=== PATIENT | female | born 1940 | race Caucasian/White ===

== ENCOUNTER 2016-06-06 08:00 | Outpatient (CLI) | payer MEDICARE, OTHER | END 2016-06-06 08:01 | disposition home or self-care (01) | DX: Z00.00 Encounter for general adult medical examination without abnormal findings (principal); E78.5 Hyperlipidemia, unspecified; E83.52 Hypercalcemia; M85.80 Other specified disorders of bone density and structure, unspecified site; M54.5 Low back pain; M51.36 Other intervertebral disc degeneration, lumbar region ==

== ENCOUNTER 2016-06-06 09:59 | Outpatient (CLI) | payer MEDICARE, OTHER | END 2016-06-06 10:00 | disposition home or self-care (01) | DX: M54.5 Low back pain (principal); M51.36 Other intervertebral disc degeneration, lumbar region ==

== ENCOUNTER 2017-06-29 15:20 | Outpatient (CLI) | payer MEDICARE, OTHER ==
--- NOTE | 2017-06-29 19:38 | XRAY Report ---
EXAM: CERVICAL SPINE RADIOGRAPHY EXAM DATE: 06/29/2017 03:47 PM. HISTORY: ULNAR NERVE COMPRESSION, CARPAL TUNNEL SYNDROME. COMPARISONS: None. TECHNIQUE: 7 views, including oblique and flexion-extension lateral views. FINDINGS: Alignment: Normal. No spondylolisthesis or scoliosis. No abnormal motion with flexion or extension. Bones: The cervical vertebral bodies and posterior elements are well visualized from the skull base t hrough C7-T1. No fractures or bone lesions. Disks: Disk space narrowing at all cervical levels. Facets: Generalized degenerative changes with narrowing on the right at C3-C4 and C4-C5 and mild narr owing on the left at C4-C5. Soft Tissues: Normal. No prevertebral soft tissue swelling. The visualized lung apices are clear. IMPRESSION: 1. Generalized degenerative changes with neural foraminal narrowing is noted. 2. No abnormal flexion-extension. [facility] Referring Provider Line: [phone] SITE ID: [id number]
== END 2017-06-29 15:21 | disposition home or self-care (01) ==
LOC: DI.N 15:20
PROVIDERS: ATTEND Nurse Practitioner
DX: M54.12 Radiculopathy, cervical region (principal); M54.2 Cervicalgia
CPT/HCPCS: 72052

== ENCOUNTER 2017-07-03 08:00 | Outpatient (CLI) | payer MEDICARE, OTHER ==
[2017-07-03 19:29] LABS: CALCIUM 10.3 mg/dL (8.5-10.3); CREATININE 0.6 mg/dL (0.4-1.0)
== END 2017-07-03 08:01 | disposition home or self-care (01) ==
LOC: LAB.N 08:00
PROVIDERS: ATTEND Nurse Practitioner
DX: Z00.00 Encounter for general adult medical examination without abnormal findings (principal)
CPT/HCPCS: 36415; 80048

== ENCOUNTER 2017-07-09 13:36 | Outpatient (CLI) | payer MEDICARE, OTHER ==
--- NOTE | 2017-07-10 13:37 | DEXA Report ---
DEXA SCAN: 07/09/2017 CLINICAL INDICATION: Osteopenia. . TECHNIQUE: Dual energy x-ray absorptiometry (DXA) was performed on a [employer] system. Regions measured are the AP spine, femoral neck, and, if needed, forearm. COMPARISON: None. In accordance with the International Society for Clinical Densitometry (ISCD) guidelines, data from previous exams may be reanalyzed using current recommendations and techniques. This is done to allow a more accurate basis for comparison with the current study. FINDINGS: The data for the lumbar spine is as follows: REGION BMD (g/cm/cm) T-SCORE Z-SCORE L1 1.030 -0.8 0.9 L2 1.195 0.0 1.7 L3 1.245 0.4 2.1 L4 1.029 -1.4 0.3 TOTAL 1.123 -0.5 1.2 NOTE: All evaluable vertebrae are used for classification. The data for the hip is as follows: REGION BMD (g/cm/cm) T-SCORE Z-SCORE Neck 0.801 -1.7 0.3 TOTAL 0.741 -2.1 -0.3 NOTE: The femoral neck or total proximal femur, whichever is lowest, is used for classification. IMPRESSION: THE WHO CLASSIFICATION BASED ON THE INTERNATIONAL REFERENCE STANDARD IS OSTEOPENIA. THE FRACTURE RISK IS INCREASED. RECOMMENDATION: Patients with diagnosis of osteoporosis or osteopenia should have regular bone mineral density assessment. For those eligible for Medicare, routine testing is allowed once every 2 years. Testing frequency can be increased for patients who have rapidly progressing disease or for those who are receiving medical therapy to restore bone mass. COMMENT: World Health Organization (WHO) definitions for osteoporosis and osteopenia: NORMAL BMD: T-score at 1.0 or higher, fracture risk is low. OSTEOPENIA BMD: T-score between 1.0 and -2.5, fracture risk is increased. OSTEOPOROSIS BMD: T-score at 2.5 or lower, fracture risk high. National Osteoporosis Foundation recommends: 1. Obtain adequate dietary calcium (at least 1200 mg per day) and vitamin D (400 -800 international units per day). 2. Participate, as appropriate, in regular weightbearing and muscle- strengthening exercise. 3. Avoid tobacco use and reduce alcohol and caffeine intake. 4. For more detailed information see the website at www.NOF.org. MTDD
== END 2017-07-09 13:37 | disposition home or self-care (01) ==
LOC: DI 13:36
PROVIDERS: ATTEND Nurse Practitioner
DX: M85.88 Other specified disorders of bone density and structure, other site (principal)
CPT/HCPCS: 77080

== ENCOUNTER 2017-07-16 23:34 | Outpatient (CLI) | payer MEDICARE, OTHER | END 2017-07-16 23:35 | disposition home or self-care (01) | LOC: LAB.N 23:34 | PROVIDERS: ATTEND Nurse Practitioner | DX: M85.80 Other specified disorders of bone density and structure, unspecified site (principal) | CPT/HCPCS: 36415; 82306 ==

== ENCOUNTER 2018-01-22 06:08 | Day surgery (SDC) | payer MEDICARE, OTHER ==
[2018-01-22] MEDS ORDERED: LACTATED RINGERS 1,000 ML IV ONE (06:37)
[2018-01-22] MEDS ORDERED: BUPIVACAINE 0.25% PF 30 ML VIAL ONE (06:58)
[2018-01-22] MEDS ORDERED: LIDOCAINE 1%-EPI 1:100000 30 ML MDV ONE (06:59)
[2018-01-22] MEDS ORDERED: fentaNYL 100 MCG/2 ML VIAL IVP ONE (07:08)
[2018-01-22] MEDS ORDERED: PROPOFOL 200 MG/20 ML VIAL IVP ONE (07:08)
[2018-01-22] MEDS ORDERED: ONDANSETRON 4 MG/2 ML VIAL IVP ONE (07:08)
--- NOTE | 2018-01-22 07:08 | ANESTHESIA ---
Pre-Anesthesia VS, & Labs - Diagnosis left carpal tunnel syndrome - Procedure left carpal tunnel release Vital Signs: Temp Pulse Resp BP Pulse Ox 36.3 C L 71 16 148/93 H 100 01/22/18 06:42 01/22/18 06:42 01/22/18 06:42 01/22/18 06:42 01/22/18 06:42 Height 5 ft 2 in Weight (kg) 67.9 kg - NPO >8 hours - Is Patient ?: Not Applicable - Lab Results Lab results reviewed: Yes Home Medications and Allergies Home Medications: Ambulatory Orders Acetaminophen [Tylenol Arthritis] 650 mg PO 01/21/18 Aspirin 81 mg PO 01/21/18 Calcium Carbonate [Calcium] 600 mg PO 01/21/18 Cholecalciferol (Vitamin D3) [Vitamin D3] 1,000 unit PO 01/21/18 Naproxen Sodium [Aleve] 220 mg PO 01/21/18 [place]-3/Dha/Epa/Fish Oil [Fish Oil 1,000 mg Softgel] 1 each PO 01/21/18 Gabapentin [Neurontin] 100 mg PO ONCE 01/22/18 Sumatriptan Succinate [Imitrex] 50 mg PO PRN PRN 01/22/18 Tolterodine Tartrate [Detrol LA] 4 mg PO ACHS 01/22/18 Acetaminophen [Tylenol Arthritis] 650 mg PO 01/21/18 Aspirin 81 mg PO 01/21/18 Calcium Carbonate [Calcium] 600 mg PO 01/21/18 Cholecalciferol (Vitamin D3) [Vitamin D3] 1,000 unit PO 01/21/18 Naproxen Sodium [Aleve] 220 mg PO 01/21/18 [place]-3/Dha/Epa/Fish Oil [Fish Oil 1,000 mg Softgel] 1 each PO 01/21/18 Gabapentin [Neurontin] 100 mg PO ONCE 01/22/18 Sumatriptan Succinate [Imitrex] 50 mg PO PRN PRN 01/22/18 Tolterodine Tartrate [Detrol LA] 4 mg PO ACHS 01/22/18 Allergies/Adverse Reactions: Allergies Allergy/AdvReac Type Severity Reaction Status Date / Time No Known Drug Allergies Allergy Verified 01/22/18 07:11 Anes History & Medical History - Anesthetic History Anesthesia Complications: reports: Post-Operative Nausea/Vomiting Family history of Anesthesia Complications: Denies Family history of Malignant Hyperthermia: Denies - Medical History Cardiovascular: reports: High cholesterol Pulmonary: reports: None Gastrointestinal: reports: GERD Urinary: reports: None Musculoskeletal: reports: Osteoarthritis, Osteopenia, Scoliosis Endocrine/Autoimmune: reports: None Skin: reports: None, Other - Surgical History General: Appendectomy Eyes Ears Nose Throat (EENT): Cataracts Gynecologic: Hysterectomy Orthopedic: Hip replacement, Knee replacement Exam General: Alert, Oriented x3, Cooperative, No acute distress Dental: WNL Mouth Openin Fingerbreadth Neck Mobility: Normal Mallampati classification: I Thyromental Distance: greater than 6 cm Respiratory: Lungs clear, Normal breath sounds, No respiratory distress, No accessory muscle use Cardiovascular: Regular rate, Normal S1, Normal S2, No murmurs Mental/Cognitive Status: Alert/Oriented X3, Normal for patient Cognitive Status: Within normal limits Plan Anesthesia Type: MAC Consent for Procedure(s) Verified and Reviewed: Yes Code Status: Attempt Resuscitation ASA classification: 2-Mild systemic disease Is this case an emergency?: No
[2018-01-22] MEDS ORDERED: BUPIVACAINE 0.25% PF 30 ML VIAL SUBQ ONE ×2 (07:35)
[2018-01-22] MEDS ORDERED: LIDOCAINE 1%-EPI 1:100000 30 ML MDV SUBQ ONE ×2 (07:35)
[2018-01-22 08:27] VITALS: BP 120/65
--- NOTE | 2018-01-22 12:20 | OPERATIVE REPORT ---
DATE OF SERVICE: 01/22/2018 Physician: Sarah Baer MD PREOPERATIVE DIAGNOSIS: Left carpal tunnel syndrome. POSTOPERATIVE DIAGNOSIS: Left carpal tunnel syndrome. PROCEDURE PERFORMED: Left carpal tunnel release. OPERATING SURGEON: Sarah Baer MD ANESTHESIA: Local, MAC. ANESTHESIOLOGIST: Irina Gray CRNA. INDICATIONS FOR SURGERY: The patient is a 77-year-old female with progressive carpal tunnel syndrome of her left hand, who has numbness at night, and is not responding to bracing and nonoperative treat ment, and she desires a carpal tunnel release. DESCRIPTION OF OPERATIVE PROCEDURE: The patient was taken to the operating room. She was given tevin tion in the supine position. Her left hand was sterilely prepped and draped in standard fashion. Simons rgical timeout was undertaken, after which the carpal tunnel was infiltrated with 1% lidocaine with e pinephrine and 0.25% Marcaine plain, utilizing a proximal total volume of 8 mL. Once this was adequa tely anesthetized, a longitudinal incision was made in the palm in line with the radial border of the ring finger, approximately 1.5 inches in length, taken through skin and subcutaneous tissue, and the n dissecting down to the transverse carpal ligament, which was divided in line with the incision. Th e release extended from the distal flexion crease of the wrist to the area of the superficial arch in the palm, and the median nerve was noted to be somewhat constricted, but no other anatomic abnormali ty noted. The area was irrigated thoroughly. Closure was with interrupted 4-0 nylon suture in the skin, after which sterile dressings were applied. The patient was taken to recovery room in stable condition. ESTIMATED BLOOD LOSS: Minimal. COMPLICATIONS: None. COUNTS: Sponge and needle counts correct. TD: 01/22/2018 10:39
== END 2018-01-22 06:09 | disposition home or self-care (01) ==
LOC: SDS 06:08
PROVIDERS: ATTEND Orthopaedic Surgery
PROC: 01N50ZZ Release Median Nerve, Open Approach (ICD-10-PCS; principal; 2018-01-22 07:30)
DX: G56.02 Carpal tunnel syndrome, left upper limb (principal); E78.5 Hyperlipidemia, unspecified; M41.80 Other forms of scoliosis, site unspecified; K21.9 Gastro-esophageal reflux disease without esophagitis; M19.90 Unspecified osteoarthritis, unspecified site; M85.80 Other specified disorders of bone density and structure, unspecified site; Z85.820 Personal history of malignant melanoma of skin; Z86.718 Personal history of other venous thrombosis and embolism; Z79.1 Long term (current) use of non-steroidal anti-inflammatories (NSAID); Z79.82 Long term (current) use of aspirin
CPT/HCPCS: 64721; J7120

== ENCOUNTER 2018-11-12 | Outpatient (CLI) | payer MEDICARE, OTHER | END 2018-11-12 23:59 | disposition home or self-care (01) | DX: R39.9 Unspecified symptoms and signs involving the genitourinary system (principal) | CPT/HCPCS: 87086; 87181 ==

== ENCOUNTER 2019-03-04 11:19 | Outpatient (CLI) | payer MEDICARE, OTHER ==
[2019-03-04 17:09] LABS: BASOPHILS % (AUTO) 0.5 %; EOSINOPHILS % (AUTO) 0.5 %; HGB - HEMOGLOBIN 13.4 g/dL (12.0-16.0); LYMPHOCYTES % (AUTO) 33.2 %; MEAN CORPUSCULAR HEMOGLOBIN 30.2 pg (27.0-31.0); MEAN CORPUSCULAR HGB CONC 31.6 g/dL (32.0-36.0); MEAN CORPUSCULAR VOLUME 95.5 fL (81.0-99.0); MEAN PLATELET VOLUME 10.7 fL (7.9-10.8); MONOCYTES # (AUTO) 0.4 10^3/uL (0.0-1.0); MONOCYTES % (AUTO) 6.5 %; NEUTROPHILS # (AUTO) 3.5 10^3/uL (1.5-6.6); NEUTROPHILS % (AUTO) 59.1 %; PLT - PLATELET COUNT 300 10^3/uL (130-450); RED BLOOD COUNT 4.44 10^6/uL (4.20-5.40); RED CELL DISTRIBUTION WIDTH 13.7 % (12.0-15.0)
[2019-03-04 17:21] LABS: ALBUMIN 4.4 g/dL (3.2-5.5); ALBUMIN/GLOBULIN RATIO 1.4 (1.0-2.2); CREATININE 0.7 mg/dL (0.4-1.0); TOTAL PROTEIN 7.5 g/dL (6.7-8.2)
== END 2019-03-04 23:59 | disposition home or self-care (01) ==
LOC: LAB.N 11:19
PROVIDERS: ATTEND Nurse Practitioner Gerontology
DX: Z79.899 Other long term (current) drug therapy (principal)
CPT/HCPCS: 36415; 80053; 85025

== ENCOUNTER 2020-02-23 18:55 | Outpatient (CLI) | payer MEDICARE, OTHER | END 2020-02-23 18:56 | disposition home or self-care (01) | LOC: COV 18:55 | PROVIDERS: ATTEND Ophthalmology | DX: Z01.812 Encounter for preprocedural laboratory examination (principal); H25.11 Age-related nuclear cataract, right eye; Z20.828 Contact with and (suspected) exposure to other viral communicable diseases ==

== ENCOUNTER 2020-02-26 07:23 | Day surgery (SDC) | payer MEDICARE, OTHER ==
[~2020-02-26 07:23] MED LIST: KETOROLAC 0.45% OPHTH DROPS ONE; PHENYLEPHRINE 2.5% OPHTH 2 ML DROPS ONE; PROPARACAINE 0.5% OPHTH DROPS 15 ML ONE
[2020-02-26] MEDS ORDERED: MIDAZOLAM 2 MG/2 ML VIAL IVP ONE (07:24)
[2020-02-26] MEDS ORDERED: LACTATED RINGERS 500 ML IV ONE ×2 (08:03→09:55)
[2020-02-26] MEDS ORDERED: MORPHINE 2 MG/ML CARPUJECT IVP PRN (08:27)
[2020-02-26] MEDS ORDERED: ATROPINE ABBOJECT 1 MG/10 ML SYRINGE IVP PRN (08:27)
[2020-02-26] MEDS ORDERED: HYDROmorphone 0.5 MG/0.5 ML SYRINGE IVP PRN (08:27)
[2020-02-26] MEDS ORDERED: ONDANSETRON 4 MG/2 ML VIAL IVP PRN (08:27)
[2020-02-26] MEDS ORDERED: ePHEDrine 50 MG/ML VIAL IVP PRN (08:27)
[2020-02-26] MEDS ORDERED: METOCLOPRAMIDE 10 MG/2 ML VIAL IVP PRN (08:27)
[2020-02-26] MEDS ORDERED: fentaNYL 100 MCG/2 ML VIAL IVP PRN (08:27)
[2020-02-26] MEDS ORDERED: NALOXONE 0.4 MG/ML VIAL IVP PRN (08:27)
--- NOTE | 2020-02-26 08:27 | ANESTHESIA ---
Pre-Anesthesia VS, & Labs - Diagnosis right eye cataract - Procedure right CATIOL Vital Signs: Temp Pulse Resp BP Pulse Ox 36.7 C 71 16 139/91 H 97 02/26/20 07:37 02/26/20 07:37 02/26/20 07:37 02/26/20 07:37 02/26/20 07:37 Height: 5 ft 2 in Weight (kg): 71 kg Body Mass Index: 28.6 BMI Classification: Overweight - NPO >8 hours - Is Patient ?: No - Lab Results Lab results reviewed: Yes Home Medications and Allergies Acetaminophen [Tylenol Arthritis] 650 mg PO PRN PRN 01/21/18 Aspirin 81 mg PO DAILY 01/21/18 Calcium Carbonate [Calcium] 600 mg PO DAILY 01/21/18 Cholecalciferol (Vitamin D3) [Vitamin D3] 1,000 unit PO DAILY 01/21/18 Naproxen Sodium [Aleve] 220 mg PO DAILY 01/21/18 [place]-3/Dha/Epa/Fish Oil [Fish Oil 1,000 mg Softgel] 1 each PO DAILY 01/21/18 Sumatriptan Succinate [Imitrex] 50 mg PO PRN PRN 01/22/18 Tolterodine Tartrate [Detrol LA] 4 mg PO ACHS 01/22/18 Allergies/Adverse Reactions: Allergies Allergy/AdvReac Type Severity Reaction Status Date / Time No Known Drug Allergies Allergy Verified 01/22/18 07:11 Anes History & Medical History - Anesthetic History Anesthesia Complications: reports: No previous complications Family history of Anesthesia Complications: Denies Family history of Malignant Hyperthermia: Denies - Medical History Cardiovascular: reports: High cholesterol Pulmonary: reports: None Gastrointestinal: reports: GERD Urinary: reports: None, Frequency Musculoskeletal: reports: Osteoarthritis, Osteopenia, Scoliosis Endocrine/Autoimmune: reports: None Skin: reports: None, Other - Surgical History General: Appendectomy Eyes Ears Nose Throat (EENT): Cataracts Gynecologic: Hysterectomy Orthopedic: Hip replacement, Knee replacement Exam General: Alert, Oriented x3, Cooperative, No acute distress Dental: WNL Mouth Openin Fingerbreadth Neck Mobility: Normal Mallampati classification: II Respiratory: Lungs clear, Normal breath sounds, No respiratory distress, No accessory muscle use Cardiovascular: Regular rate, Normal S1, Normal S2, No murmurs Plan Anesthesia Type: MAC Consent for Procedure(s) Verified and Reviewed: Yes Code Status: Attempt Resuscitation ASA classification: 2-Mild systemic disease Is this case an emergency?: No
[2020-02-26 08:54] LABS: C. PNEUMONIAE- RESP PCR PANEL NOT DETECTED
[2020-02-26] MEDS ORDERED: LACTATED RINGERS 1,000 ML IV SCH (09:00)
[2020-02-26] MEDS ORDERED: BRIMONIDINE 0.2% OPHTH DROPS 5 ML OPTH ONE ×2 (09:06→09:38)
[2020-02-26] MEDS ORDERED: EPINEPHrine 1 MG/ML AMP IR ONE ×2 (09:06→09:38)
[2020-02-26] MEDS ORDERED: BSS/LIDOCAINE/EPINEPHRINE 1 ML SYRINGE IO ONE ×2 (09:07→09:38)
[2020-02-26] MEDS ORDERED: TIMOLOL 0.5% OPHTH DROPS OPTH ONE ×2 (09:07→09:38)
[2020-02-26] MEDS ORDERED: CHONDR SULF/HYALURONATE SYRINGE IO ONE ×2 (09:07→09:38)
[2020-02-26] MEDS ORDERED: TRIAMCIN/MOXIFLOX OPHTHALMIC 0.6 ML VIAL IO ONE ×3 (09:07→11:04)
[2020-02-26] MEDS ORDERED: PROPARACAINE 0.5% OPHTH DROPS 15 ML EACHEYE ONE ×2 (09:08→09:38)
[2020-02-26] MEDS ORDERED: VANCOMYCIN OPHTHALMI 8MG/0.8ML 8 MG/0.8 ML SYRINGE IO ONE ×3 (09:08→11:05)
[2020-02-26] MEDS ORDERED: CARBACHOL 0.01% 1.5 ML VIAL IO ONE ×2 (09:48→09:56)
[2020-02-26 09:56] VITALS: BP 110/62
[2020-02-26] MEDS ORDERED: BSS/LIDOCAINE/EPINEPHRINE 1 ML SYRINGE ONE (11:05)
[2020-02-26] MEDS ORDERED: EPINEPHrine 1 MG/ML AMP ONE (11:05)
[2020-02-26] MEDS ORDERED: BRIMONIDINE 0.2% OPHTH DROPS 5 ML ONE (11:05)
[2020-02-26] MEDS ORDERED: TIMOLOL 0.5% OPHTH DROPS ONE (11:05)
--- NOTE | 2020-02-26 14:16 | OPERATIVE REPORT ---
DATE OF SERVICE: 02/26/2020 Physician: Jay Hong MD PREOPERATIVE DIAGNOSIS: Visually significant cataract, right eye. Cataract surgery was performed on the left eye on 05/21/2008 by another provider. POSTOPERATIVE DIAGNOSIS: Visually significant cataract, right eye. Cataract surgery was performed on the left eye on 05/21/2008 by another provider. PROCEDURE PERFORMED: Phacoemulsification with posterior chamber intraocular lens implant, right eye. SURGEON: Jay Hong MD ANESTHESIA: Monitored anesthesia care. COMPLICATIONS: None. OPERATIVE INDICATIONS: This is an 80-year-old woman with progressive vision loss in the right eye du e to 3-4+ nuclear sclerotic cataract. Best corrected visual acuity was 20/25, with glare to 20/125. Indications for surgery are overall decrease in vision, difficulty seeing words on a computer screen , difficulty reading, difficulty seeing words, closed caption or game scores on TV, difficulty seeing street signs, difficulty driving in low light or at night, difficulty driving at night because of he adlights from other vehicles, and difficulty with glare or bright lights in any situation. She was c onsented at length concerning risks and benefits of cataract surgery, after which she expressed a prasanna morgan to proceed with surgery. OPERATIVE PROCEDURE: The patient was taken to OR #3 and placed under monitored anesthesia care. A s urgical timeout was conducted confirming correct patient, correct procedure, and correct surgical sit e. She was given topical anesthesia, and prepped and draped in the usual sterile fashion. The eye w as entered at the 12, and 9 o'clock positions. Intracameral Shugarcaine was injected into the anteri or chamber, followed by Viscoat. A continuous-tear curvilinear capsulorrhexis was performed. The nu cleus was hydrodissected and phacoemulsified. The cortex was evacuated using automated infusion and aspiration. Provisc was injected in the capsular bag, and a 19.5 diopter intraocular lens inserted i n the bag. Infusion and aspiration was used to evacuate the viscoelastic materials. The eye was inf lated to physiologic pressure using balanced salt solution and found to be watertight. Approximately 0.25 mL of a mixture of triamcinolone and moxifloxacin was injected transsclerally into the vitreous in inferotemporal quadrant. An additional 0.55 mL of a mixture of triamcinolone, moxifloxacin, and vancomycin was injected subconjunctivally in the superior quadrant for infection and inflammation pro phylaxis. The wound was prolapsing somewhat up to the plane of the iris so Miostat was injected into the anterior chamber to bring the pupil down and force the lens posteriorly, this did eventually occ ur and afterwards the wound integrity was checked with Weck-Alicia sponges and found to be intact. The patient was taken from the Operating Room in good condition and given postoperative instructions. TD: 02/26/2020 10:04
== END 2020-02-26 07:24 | disposition home or self-care (01) ==
LOC: SDS 07:23
PROVIDERS: ATTEND Ophthalmology
DX: H25.11 Age-related nuclear cataract, right eye (principal); Z98.42 Cataract extraction status, left eye
CPT/HCPCS: 66984; 87631; A9270; J3490; J7120; V2632; 0202U

== ENCOUNTER 2020-03-12 08:00 | Outpatient (CLI) | payer MEDICARE, OTHER ==
[2020-03-12 13:00] LABS: BASOPHILS % (AUTO) 0.6 %; EOSINOPHILS # (AUTO) 0.1 10^3/uL (0.0-0.7); EOSINOPHILS % (AUTO) 1.7 %; HGB - HEMOGLOBIN 13.6 g/dL (12.0-16.0); LYMPHOCYTES # (AUTO) 2.5 10^3/uL (1.5-3.5); LYMPHOCYTES % (AUTO) 47.1 %; MEAN CORPUSCULAR HEMOGLOBIN 30.4 pg (27.0-31.0); MEAN CORPUSCULAR HGB CONC 31.1 g/dL (32.0-36.0); MEAN CORPUSCULAR VOLUME 97.8 fL (81.0-99.0); MEAN PLATELET VOLUME 10.9 fL (7.9-10.8); MONOCYTES # (AUTO) 0.6 10^3/uL (0.0-1.0); MONOCYTES % (AUTO) 10.6 %; NEUTROPHILS # (AUTO) 2.1 10^3/uL (1.5-6.6); NEUTROPHILS % (AUTO) 39.8 %; PLT - PLATELET COUNT 286 10^3/uL (130-450); RED BLOOD COUNT 4.47 10^6/uL (4.20-5.40); RED CELL DISTRIBUTION WIDTH 13.2 % (12.0-15.0); WHITE BLOOD COUNT 5.3 x10^3/uL (4.8-10.8)
[2020-03-12 13:34] LABS: ALBUMIN 4.3 g/dL (3.2-5.5); ALBUMIN/GLOBULIN RATIO 1.3 (1.0-2.2); ALKALINE PHOSPHATASE 51 IU/L (42-121); ALT ALANINE AMINOTRANSFERASE 19 IU/L (10-60); AST ASPARTATE AMINOTRANSFERASE 21 IU/L (10-42); BILIRUBIN,TOTAL 0.6 mg/dL (0.2-1.0); BUN - BLOOD UREA NITROGEN 21 mg/dL (6-20); CALCIUM 9.7 mg/dL (8.5-10.3); CARBON DIOXIDE - CO2 27 mmol/L (21-32); CHLORIDE 104 mmol/L (101-111); CHOLESTEROL 184 mg/dL; CREATININE 0.7 mg/dL (0.4-1.0); GLUCOSE 82 mg/dL (70-100); HDL CHOLESTEROL 46 mg/dL; LDL CHOLESTEROL,CALCULATED 113 mg/dL; LDL/HDL RATIO 2.5 (<4.4); SODIUM 135 mmol/L (135-145); TOTAL PROTEIN 7.6 g/dL (6.7-8.2); VLDL CHOLESTEROL 25 mg/dL
== END 2020-03-12 23:59 | disposition home or self-care (01) ==
LOC: LAB.WCP 08:00
PROVIDERS: ATTEND Nurse Practitioner
DX: R00.2 Palpitations (principal); Z79.899 Other long term (current) drug therapy; K21.9 Gastro-esophageal reflux disease without esophagitis; M85.80 Other specified disorders of bone density and structure, unspecified site; E83.52 Hypercalcemia
CPT/HCPCS: 36415; 80053; 80061; 83721; 84443; 85025

== ENCOUNTER 2020-03-15 12:37 | Outpatient (CLI) | payer MEDICARE, OTHER ==
--- NOTE | 2020-03-16 14:35 | Mammography Report ---
BILATERAL DIGITAL SCREENING MAMMOGRAM 3D/2D: 03/15/2020 CLINICAL: Routine screening. Comparison is made to exams dated: 05/08/2014 ultrasound, 05/08/2014 mammogram, 03/31/2013 mammogram, 02/28/2011 mammogram, and 02/28/2010 mammogram - [facility]. There are scattered f ibroglandular elements in both breasts. There are benign vascular calcifications in the right breast. No significant masses, calcifications, or other findings are seen in either breast. There has been no significant interval change. IMPRESSION: BENIGN There is no mammographic evidence of malignancy. A 1 year screening mammogram is recommended. This exam was interpreted at Station ID: [id number]. NOTE: For mammograms, a report in lay terms will be sent to the patient. Approximately 15% of breast malignancies will not be visualized mammographically. In the management of a palpable breast mass, a negative mammogram must not discourage biopsy of a clinically suspicious lesion. Electronically Signed By: Zoila shin/tresa:03/15/2020 13:33:57 ACR BI-RADS Category 2: Benign Finding(s) 3342F PARENCHYMAL PATTERN: (A) - The breast(s) demonstrate(s) scattered fibroglandular densities. BI-RADS CATEGORY: (2) - 2 RECOMMENDATION: (ANNUAL) - Recommend routine annual screening mammography. [id number] 1 year screening LATERALITY: (B)
== END 2020-03-15 12:38 | disposition home or self-care (01) ==
LOC: DI.N 12:37
PROVIDERS: ATTEND Nurse Practitioner
DX: Z12.31 Encounter for screening mammogram for malignant neoplasm of breast (principal)

== ENCOUNTER 2020-03-16 11:00 | Outpatient (CLI) | payer MEDICARE, OTHER ==
--- NOTE | 2020-03-16 15:50 | DEXA Report ---
PROCEDURE: Dexa Spine and/or Hip INDICATIONS: MENOPAUSE TECHNIQUE: Dual energy x-ray absorptiometry (DXA) was performed on a [employer]. Regions measur ed are the AP Spine, femoral neck, and if needed forearm. COMPARISON: None. FINDINGS: Lumbar Spine: Bone Mineral Density 1.141 g/cm/cm,T score -0.5, unchanged Left Hip: Bone Mineral Density 0.715 g/cm/cm,T score -2.3, compared to -2.1. Left Femoral Neck: Bone Mineral Density 0.757 g/cm/cm, T score -2.0, compared to -1.7 (T score greater or equal to -1.0: NORMAL) (T score from -1.1 to -2.4: OSTEOPENIA) (T score less than or equal to -2.5 to: OSTEOPOROSIS) Impression: Progressive moderate to severe osteopenia within the left hip and femoral neck. Patients with diagnosis of osteoporosis or osteopenia should have regular bone mineral density assess ment. For those eligible for Medicare, routine testing is allowed once every 2 years. Testing frequ ency can be increased for patients who have rapidly progressing disease or for those who are receivin g medical therapy to restore bone mass. Reviewed by: Rhonda Lopez MD on 03/16/2020 3:49 PM PST Approved by: Rhonda Lopez MD on 03/16/2020 3:49 PM PST Station ID: [id number]
== END 2020-03-16 11:01 | disposition home or self-care (01) ==
LOC: DI 11:00
PROVIDERS: ATTEND Nurse Practitioner
DX: M85.89 Other specified disorders of bone density and structure, multiple sites (principal)

== ENCOUNTER 2020-09-23 09:10 | Outpatient (CLI) | payer MEDICARE, OTHER ==
--- NOTE | 2020-09-24 09:18 | XRAY Report ---
PROCEDURE: Spine Entire AP/LAT INDICATIONS: SCOLIOSIS TECHNIQUE: 6 view(s) of the entire spine acquired. COMPARISON: Lumbar spine radiograph dated 06/06/2016 and cervical spine radiograph dated 06/29/2017 FINDINGS: Bones: There is a mild to moderate rightward scoliosis centered at T7 level and, angle measures 18.9 degrees . There is a compensatory left lower curvature of thoracolumbar spine centered at T12 level with Hernandez a ngle measures 32.1 degrees. Mild rightward curvature of lower lumbar spine centered at L3-4 level is seen with Hernandez angle measure s 11.5 degrees. Degenerative endplate changes throughout cervical, thoracic and lumbar spine is seen. No acute compre ssion fracture or spondylolisthesis. Soft tissues: No suspicious soft tissue calcifications. IMPRESSION: Scoliosis of thoracic and lumbar spine as described in detail above. No acute compression fracture or spondylolisthesis. Degenerative disc disease throughout cervical, thoracic and lumbar spine. Reviewed by: Michael Metzger MD on 09/24/2020 9:17 AM PDT Approved by: Michael Metzger MD on 09/24/2020 9:17 AM PDT Station ID: [id number]
== END 2020-09-23 09:11 | disposition home or self-care (01) ==
LOC: DI.N 09:10
PROVIDERS: ATTEND Family Medicine
DX: M50.30 Other cervical disc degeneration, unspecified cervical region (principal); M51.34 Other intervertebral disc degeneration, thoracic region; M51.36 Other intervertebral disc degeneration, lumbar region

== ENCOUNTER 2020-11-22 07:00 | Outpatient (CLI) | payer MEDICARE, OTHER ==
--- NOTE | 2020-11-22 16:24 | XRAY Report ---
PROCEDURE: Ankle 3 View LT INDICATIONS: L ANKLE PX TECHNIQUE: 3 views of the ankle were acquired. COMPARISON: None FINDINGS: Bones: No fractures or dislocations. Ankle mortise is normally aligned. No suspicious bony lesions . There is mild loss of plantar arch as well as inferior subluxation of the midfoot. Soft tissues: No tibiotalar joint effusion. Achilles tendon appears normal. IMPRESSION: Degenerative changes. No visualized acute fracture or dislocation. However, occult injur y cannot be excluded. Recommend short interval imaging follow-up in 7-10 days as clinically indicated for additional evaluation. Reviewed by: Rhonda Lopez MD on 11/22/2020 4:23 PM PDT Approved by: Rhonda Lopez MD on 11/22/2020 4:23 PM PDT Station ID: [id number]
--- NOTE | 2020-11-22 16:25 | XRAY Report ---
PROCEDURE: Knee 4 View LT INDICATIONS: L KNEE PX TECHNIQUE: 3 views of the left knee(s) were acquired. COMPARISON: None. FINDINGS: Bones: No fractures or dislocations. No suspicious bony lesions. Right knee arthroplasty is presen t without evidence of hardware fracture or periprosthetic lucency. There is moderate to severe medial , patellofemoral as well as moderate lateral compartment narrowing on the left. Extensive periarticul ar osteophytes are present. Minimal lateral patellar subluxation is present. Soft tissues: No joint effusion. No suspicious soft tissue calcifications. IMPRESSION: 1. Right knee arthroplasty. 2. Moderate to severe tricompartmental arthritic changes on the left. Reviewed by: Rhonda Lopez MD on 11/22/2020 4:24 PM PDT Approved by: Rhonda Lopez MD on 11/22/2020 4:24 PM PDT Station ID: [id number]
== END 2020-11-22 07:01 | disposition home or self-care (01) ==
LOC: DI.N 07:00
PROVIDERS: ATTEND Physician Assistant
DX: M19.072 Primary osteoarthritis, left ankle and foot (principal); M17.12 Unilateral primary osteoarthritis, left knee; Z96.651 Presence of right artificial knee joint

== ENCOUNTER 2021-03-30 07:30 | Outpatient (CLI) | payer MEDICARE, OTHER ==
[2021-03-30 11:52] LABS: BASOPHILS % (AUTO) 0.5 %; EOSINOPHILS # (AUTO) 0.1 10^3/uL (0.0-0.7); EOSINOPHILS % (AUTO) 1.9 %; HCT - HEMATOCRIT 40.9 % (37.0-47.0); HGB - HEMOGLOBIN 13.3 g/dL (12.0-16.0); LYMPHOCYTES # (AUTO) 3.1 10^3/uL (1.5-3.5); LYMPHOCYTES % (AUTO) 52.9 %; MEAN CORPUSCULAR HEMOGLOBIN 31.1 pg (27.0-31.0); MEAN CORPUSCULAR HGB CONC 32.5 g/dL (32.0-36.0); MEAN CORPUSCULAR VOLUME 95.8 fL (81.0-99.0); MEAN PLATELET VOLUME 11.2 fL (7.9-10.8); MONOCYTES # (AUTO) 0.6 10^3/uL (0.0-1.0); MONOCYTES % (AUTO) 9.5 %; NEUTROPHILS % (AUTO) 34.9 %; PLT - PLATELET COUNT 259 10^3/uL (130-450); RED BLOOD COUNT 4.27 10^6/uL (4.20-5.40); RED CELL DISTRIBUTION WIDTH 13.7 % (12.0-15.0); WHITE BLOOD COUNT 5.8 x10^3/uL (4.8-10.8)
[2021-03-30 12:39] LABS: ALBUMIN 4.1 g/dL (3.2-5.5); ALBUMIN/GLOBULIN RATIO 1.3 (1.0-2.2); BILIRUBIN,TOTAL 0.8 mg/dL (0.2-1.0); CALCIUM 9.6 mg/dL (8.5-10.3); POTASSIUM 4.3 mmol/L (3.5-5.0); TOTAL PROTEIN 7.2 g/dL (6.7-8.2)
== END 2021-03-30 23:59 | disposition home or self-care (01) ==
LOC: LAB.WCP 07:30
PROVIDERS: ATTEND Family Medicine
DX: I47.1 Supraventricular tachycardia (principal)
CPT/HCPCS: 36415; 80053; 85025

== ENCOUNTER 2021-06-15 06:02 | Day surgery (SDC) | payer MEDICARE, OTHER ==
[2021-06-15] MEDS ORDERED: CEFAZOLIN SODIUM IN 0.9 % NACL 2 GM/50 ML BAG IV ONE (06:04)
[2021-06-15] MEDS ORDERED: ACETAMINOPHEN 1,000 MG/100 ML 100 ML IV ONE (06:05)
[2021-06-15] MEDS ORDERED: CELECOXIB 100 MG CAPSULE PO ONE (06:05)
[2021-06-15] MEDS ORDERED: LACTATED RINGERS 1,000 ML IV ONE ×2 (06:37→11:14)
[2021-06-15] MEDS ORDERED: fentaNYL 100 MCG/2 ML VIAL ONE (07:20)
[2021-06-15] MEDS ORDERED: PROPOFOL 500 MG/50 ML 500 MG/50 ML VIAL ONE ×2 (07:27→08:56)
[2021-06-15] MEDS ORDERED: SODIUM CHLORIDE 0.9% 10 ML VIAL IVP ONE (07:28)
[2021-06-15] MEDS ORDERED: KETAMINE 500 MG/10 ML VIAL ONE (07:28)
--- NOTE | 2021-06-15 07:28 | ANESTHESIA ---
Pre-Anesthesia VS, & Labs - Diagnosis left knee OA - Procedure left total knee arthroplasty Vital Signs: Temp Pulse Resp BP Pulse Ox 36.4 C L 72 19 139/88 H 98 06/15/21 06:17 06/15/21 06:17 06/15/21 06:17 06/15/21 06:17 06/15/21 06:17 Height: 5 ft 2 in Weight (kg): 71.2 kg Body Mass Index: 28.7 BMI Classification: Overweight - NPO >8 hours - Is Patient ?: No - Lab Results Lab results reviewed: Yes Home Medications and Allergies Acetaminophen [Tylenol Arthritis] 650 mg PO PRN PRN 01/21/18 Aspirin 81 mg PO DAILY 01/21/18 Cholecalciferol (Vitamin D3) [Vitamin D3] 1,000 unit PO DAILY 01/21/18 Naproxen Sodium [Aleve] 220 mg PO DAILY 01/21/18 [place]-3/Dha/Epa/Fish Oil [Fish Oil 1,000 mg Softgel] 1 each PO DAILY 01/21/18 Sumatriptan Succinate [Imitrex] 50 mg PO PRN PRN 01/22/18 Tolterodine Tartrate [Detrol LA] 4 mg PO ACHS 01/22/18 Glucos Sul 2Kcl/MSM/Chond/C/Mn [Glucosamine Chondroitin Cap] 1 tab PO DAILY 04/28/21 Metoprolol Succinate [Toprol Xl] 25 mg PO ONCE 04/28/21 Omeprazole Magnesium 20 mg PO DAILY 04/28/21 Strontium-89 Chloride 1 tab PO BID 04/28/21 Allergies/Adverse Reactions: Allergies Allergy/AdvReac Type Severity Reaction Status Date / Time hydrocodone Allergy Emesis Verified 04/28/21 14:08 Anes History & Medical History - Anesthetic History Anesthesia Complications: reports: No previous complications Family history of Anesthesia Complications: Denies Family history of Malignant Hyperthermia: Denies - Medical History Cardiovascular: reports: Hypertension, High cholesterol, Peripheral Vascular Disease Pulmonary: reports: Pneumonia Gastrointestinal: reports: GERD Urinary: reports: None Musculoskeletal: reports: Osteoarthritis, Osteopenia, Scoliosis, Chronic back pain Endocrine/Autoimmune: reports: None Skin: reports: Other - Surgical History General: reports: Appendectomy, Colonoscopy Eyes Ears Nose Throat (EENT): reports: Cataracts Gynecologic: reports: Hysterectomy Orthopedic: reports: Hip replacement, Knee replacement, Carpal Tunnel surgery Exam General: Alert, Oriented x3, Cooperative, No acute distress Dental: WNL Mouth Openin Fingerbreadth Neck Mobility: Normal Mallampati classification: II Plan Anesthesia Type: General (backup), Spinal, Adductor Block Regional Block: Per Surgeon's request for Post Op pain control Consent for Procedure(s) Verified and Reviewed: Yes Code Status: Attempt Resuscitation ASA classification: 2-Mild systemic disease Is this case an emergency?: No
[2021-06-15] MEDS ORDERED: BUPIVACAINE 0.5% PF 10 ML VIAL ONE ×2 (07:29)
[2021-06-15] MEDS ORDERED: KETOROLAC 30 MG/ML VIAL ONE (07:29)
[2021-06-15] MEDS ORDERED: LIDOCAINE 2%-EPI 1:100000 20 ML MDV ONE (07:29)
[2021-06-15] MEDS ORDERED: VANCOMYCIN 1 GM VIAL ONE (07:30)
[2021-06-15] MEDS ORDERED: HYDROmorphone 1 MG/ML CARPUJECT IVP PRN (07:31)
[2021-06-15] MEDS ORDERED: ONDANSETRON 4 MG/2 ML VIAL IVP PRN ×2 (07:31→11:26)
[2021-06-15] MEDS ORDERED: BUPIVACAINE 0.25% PF 30 ML VIAL ONE (08:37)
[2021-06-15] MEDS ORDERED: KETOROLAC 30 MG/ML VIAL IVP ONE (08:48)
[2021-06-15] MEDS ORDERED: BUPIVACAINE 0.25% PF 10 ML VIAL SUBQ ONE (08:48)
[2021-06-15] MEDS ORDERED: VANCOMYCIN 1 GM VIAL MC ONE (08:48)
[2021-06-15] MEDS ORDERED: HYDROGEN PEROXIDE 3% 473 ML BOTTLE TOP ONE ×2 (08:48)
[2021-06-15] MEDS ORDERED: ROPIVACAINE 0.5% PF 30 ML VIAL ONE (08:53)
[2021-06-15] MEDS ORDERED: ONDANSETRON 4 MG/2 ML VIAL ONE (08:53)
[2021-06-15] MEDS ORDERED: DEXAMETHASONE 4 MG/ML VIAL ONE (08:53)
[2021-06-15] MEDS ORDERED: PROPOFOL 200 MG/20 ML VIAL IVP ONE (08:53)
[2021-06-15] MEDS ORDERED: ePHEDrine 50 MG/ML VIAL IVP ONE ×2 (08:54→09:38)
[2021-06-15] MEDS ORDERED: MIDAZOLAM 2 MG/2 ML VIAL ONE (09:04)
--- NOTE | 2021-06-15 10:30 | OPERATIVE REPORT ---
Operative Report - General Procedure Date: 06/15/21 Planned Procedure: left total knee arthroplasty Pre-Op Diagnosis: Osteoarthritis left knee with valgus deformity Procedure Performed: Left total knee replacement using the journey 2 Tomlinson nephew total knee system: #5 left bicruciate stabilized femoral component, size 4 nonporous tibial baseplate, 26 mm biconvex patellar component, 9 mm tibial articular insert, all components cemented Post Op Diagnosis: Same as preoperative diagnosis - Procedure Note Primary Surgeon: Shamar Reed Secondary Surgeon: Jourdan Barron Anesthesia Provider: Gloria Noel Anesthesia Technique: Regional block, Spinal Estimated Blood Loss (mL): 125 Indications: This is a 81-year-old woman who still desires to be active but has had progressive weightbearing pain with activities she would like to do and also with activities of daily living. She has had a previous right total knee arthroplasty for osteoarthritis several years ago with favorable outcome. She did have joint line tenderness, decreased motion, valgus deformity, good stability and strength. Her x-ray showed advanced tricompartmental degenerative joint disease with joint space narrowing, osteophytes, [id number] contact particularly laterally and loose bodies. She had preoperative medical evaluation and was found to be acceptable risk for left total knee arthroplasty which she desired to have done at [facility]. Findings: There was eburnated bone surfaces to the lateral compartment and patellofemoral joint and full-thickness loss to the medial compartment as well. There are osteophytes about all 3 compartments, absence of anterior cruciate ligament and degenerative posterior cruciate ligament left knee Complications: None - Other Other Information/Narrative: The patient was brought to the operating room and was placed in a supine position. She was given a adductor canal block by anesthesia. A pneumatic tourniquet was applied to the proximal left thigh over cast padding. This was a conical shaped Tresa thigh tourniquet that was sterile. An Arthrex adjustable leg lancaster was placed on the operating room table to facilitate knee flexion of the left knee during surgery. A timeout procedure was performed by the entire operating room team and all were in agreement. A midline longitudinal incision was made with the knee in flexion. A medial parapatellar arthrotomy was made. The anterior horn of medial and lateral menisci were released and part of patellar fat pad was excised. The knee was flexed and the patella was dislocated laterally. A drill hole was made in the intramedullary notch with a 9.5 mm drill. Osteophytes about the proximal tibia and femur had been removed with a rongeur. The distal femoral cutting guide was aligned parallel to the posterior condyles. The intramedullary radha and guide was advanced and the distal femoral guide was stabilized with half pins. The distal 5 degrees valgus cut was made through the distal femoral guide. Next the extra medullary tibial guide was assembled and aligned to the mechanical axis of the tibia in both sagittal and coronal planes. Tibial referencing was done to allow 3 mm of bone from the most affected lateral side. The tibial guide was stabilized with half pins. Retractors were placed medially and laterally to protect the collateral ligaments and a retractor was placed directly against the posterior bone to sublux the tibia anteriorly. A ImmusanT precision 8 saw was used to make the tibial proximal cut. The tibial block was removed as a single piece and the menisci were removed as well. The extension gap was assessed with a extension block spacer using a 9 mm spacer and this was found to fit well as well as the 9 mm spacer block with the knee in 90 degrees of flexion. Next the femoral positioning guide was applied and aligned to the epicondylar axis and Radom line. This was secured in place with approximately 3 degrees of external rotation. The size of the femur at the anterior lateral trochlea was a #5. Drill holes were made in the 5 and 1 #5 cutting block was inserted and secured. The 5 cuts were made to the captured block using the precision saw. The flexion gap was assessed with the 9 mm spacer and was found to fit well. The patella was then prepared. A 26 mm biconvex patellar reamer was used. The femoral component trial was applied and the notch was removed with reamers and box osteotome. The tibial trial #4 was then applied to the tibia and aligned to the mechanical axis. The drill and punch fin was utilized. Trial reduction was performed with the femoral and tibial components in place. Pulsatile lavage was performedAnd bone surfaces were cleaned with hydrogen peroxide as well. A tourniquet was not used during the cementing process. The components were inserted sequentially: Tibia, femur and lastly patellar component. Excess cement was removed and the knee was placed in extension during the hardening. Dilute Betadine irrigation was performed. The knee had full range of motion, good patellar tracking. There was good stability of the knee in full extension mid flexion and 90 degrees of flexion. There was good alignment of the right knee. No tourniquet was utilized during the procedure.The patient does have calcification of her femoral artery in the popliteal fossa which is not symptomatic. Hemostasis was achieved with electrocautery. Vancomycin powder 2 g were inserted in the arthrotomy prior to deep The deep closure was performed with #2 Ethibond proximal and distal to the patella with the knee in 30 degrees of flexion. #1 stratofix suture was then used to close the arthrotomy incision. 2-0 Stratofix was used to close the subcutaneous tissue. 3-0 Monocryl was used to do a subcuticular skin closure. Dermabond was applied to the skin incision. After the Dermabond had hardened, a silver impregnated dressing was applied. She tolerated the procedure well and received 2 g of Ancef intravenously and 2 g of tranxamic acid. A surgical first assistant was utilized during the procedure and was found to be necessary component to help with exposure, protection of vital structures and closure.
[2021-06-15] MEDS ORDERED: ATROPINE ABBOJECT 1 MG/10 ML SYRINGE IVP PRN (11:26)
[2021-06-15] MEDS ORDERED: METOCLOPRAMIDE 10 MG/2 ML VIAL IVP PRN (11:26)
[2021-06-15] MEDS ORDERED: ePHEDrine 50 MG/ML VIAL IVP PRN (11:26)
[2021-06-15] MEDS ORDERED: HYDROmorphone 0.5 MG/0.5 ML SYRINGE IVP PRN (11:26)
[2021-06-15] MEDS ORDERED: MORPHINE 2 MG/ML CARPUJECT IVP PRN (11:26)
[2021-06-15] MEDS ORDERED: NALOXONE 0.4 MG/ML VIAL IVP PRN (11:26)
[2021-06-15] MEDS ORDERED: fentaNYL 100 MCG/2 ML VIAL IVP PRN (11:26)
[2021-06-15] MEDS ORDERED: LACTATED RINGERS 1,000 ML IV SCH (12:00)
--- NOTE | 2021-06-15 12:37 | XRAY Report ---
PROCEDURE: Knee 2 View LT INDICATIONS: Post op in PACU TECHNIQUE: 2 views of the left knee(s) were acquired. COMPARISON: X-ray knee 11/22/2020 FINDINGS: Postoperative changes demonstrating knee arthroplasty. Hardware is intact with good anatomic alignmen t. No hardware fracture A prosthetic lucency. Soft tissue postsurgical changes are present. IMPRESSION: Postoperative knee arthroplasty changes. Reviewed by: Rhonda Lopez MD on 06/15/2021 12:36 PM PST Approved by: Rhonda Lopez MD on 06/15/2021 12:36 PM PST Station ID: [id number]
--- NOTE | 2021-06-15 12:57 | ANESTHESIA POST OP EVALUATION ---
Anesthesia Post Eval - Post Anesthesia Eval Vitals: Last Vital Signs Temp 36.1 C L 06/15/21 12:20 Pulse 66 06/15/21 12:20 Resp 18 06/15/21 12:20 BP 107/62 06/15/21 12:20 Pulse Ox 95 06/15/21 12:20 CV Function Including HR & BP: Stable Pain Control: Satisfactory Nausea & Vomiting: Negative Mental Status: Baseline Respiratory Status: Airway Patent Hydration Status: Satisfactory Anesthesia Complications: None
[2021-06-15] MEDS: SODIUM CHLORIDE FLUSH 0.9% 10 ML SYRINGE IVP SCH ×2 (13:03→16:36)
[2021-06-15] MEDS: CELECOXIB 100 MG CAPSULE PO SCH ×2 (13:03→21:09)
[2021-06-15] MEDS: ACETAMINOPHEN 500 MG TABLET PO SCH ×2 (13:15→18:14)
[2021-06-15] MEDS: NS W/20 MEQ KCL 1,000 ML IV SCH (13:15)
[2021-06-15] MEDS: SODIUM CHLORIDE FLUSH 0.9% 10 ML SYRINGE IVP PRN (13:18)
[2021-06-15] MEDS: oxyCODONE 5 MG TABLET PO PRN ×2 (13:34→19:55)
--- NOTE | 2021-06-15 16:06 | CONSULTATION NOTE ---
Referring Provider Name of Referring Provider:: Dr. Reed Consult Date: 06/15/21 Chief Complaint - Chief Complaint Chief Complaint: Medical managment of medications following total knee arthroplasty History of Present Illness - Admitted From Admitted From:: Home - History Obtained From Records Reviewed: [facility] History obtained from: Patient Exam Limitations: None - History of Present Illness HPI Comment/Other: Patient is post-op day 0 following left total knee arthroplasty today with Dr. Reed. She tolerated the procedure well. She previously had her right knee done. She reports that she is doing well. She already got up with physical therapy and walked 15 steps. She denies dizziness, light headedness or nausea with this. She had some pain with activity. Vitals upon arrival to the floor stable; afebrile, heart rate 81, blood pressure 127/64, respirations 15, O2 saturation 96% on room air. Presently she denies chest pain, shortness of breath or palpitations. Pain is controlled with oxycodone and Tylenol. She is having some heart burn and would like to take her Protonix. 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 HEENT: reports: Cataracts Meds/Allgy - Home Medications Home Medications: Ambulatory Orders Medication Instructions Recorded Confirmed Acetaminophen [Tylenol Arthritis] 650 mg PO PRN PRN 01/21/18 06/15/21 Aspirin 81 mg PO DAILY 01/21/18 06/15/21 Cholecalciferol (Vitamin D3) 1,000 unit PO DAILY 01/21/18 06/15/21 [Vitamin D3] Naproxen Sodium [Aleve] 220 mg PO DAILY 01/21/18 06/06/21 [place]-3/Dha/Epa/Fish Oil [Fish Oil 1 each PO DAILY 01/21/18 06/15/21 1,000 mg Softgel] Sumatriptan Succinate [Imitrex] 50 mg PO PRN PRN 01/22/18 06/15/21 Tolterodine Tartrate [Detrol LA] 4 mg PO HS 01/22/18 06/15/21 Glucos Sul 2Kcl/MSM/Chond/C/Mn 1 tab PO DAILY 04/28/21 06/15/21 [Glucosamine Chondroitin Cap] Metoprolol Succinate [Toprol Xl] 25 mg PO DAILY 04/28/21 06/15/21 Omeprazole Magnesium 20 mg PO DAILY 04/28/21 06/15/21 Strontium-89 Chloride 1 tab PO BID 04/28/21 06/15/21 - Allergies Allergies/Adverse Reactions: Allergies Allergy/AdvReac Type Severity Reaction Status Date / Time hydrocodone Allergy Emesis Verified 04/28/21 14:08 Review of Systems - Constitutional Constitutional: denies: Fatigue, Fever, Chills, Weakness, Poor appetite - Ears, Nose & Throat Ears, Nose & Throat: denies: Nasal congestion, Sore throat - Cardiovascular Cariovascular: denies: Irregular heart rate, Palpitations, Chest pain, Lightheadedness, Syncope, Exertional dyspnea - Respiratory Respiratory: denies: Cough, SOB at rest, SOB with exertion, Pleuritic pain - Gastrointestinal Gastrointestinal: reports: Reflux/heartburn. denies: Abdominal pain, Abdominal distention, Constipation, Diarrhea, Change in bowel habits, Nausea, Vomiting - Musculoskeletal Musculoskeletal: reports: Limited range of motion (Limited ROM in left knee due to surgery) - Neurological Neurological: denies: General weakness, Focal weakness, Headache, Dizziness, Numbness - All Other Systems All Other Systems: reports: Reviewed and negative Exam - Vital Signs Vital Signs: Vital Signs x48h Temp Pulse Pulse Pulse Pulse Pulse Resp 06/15/21 15:42 37.1 C 81 15 06/15/21 14:25 81 86 73 06/15/21 12:20 36.1 C L 66 18 06/15/21 11:55 62 14 06/15/21 11:46 36.4 C L 64 16 06/15/21 11:30 36.4 C L 66 16 06/15/21 11:21 36.5 C 70 16 06/15/21 11:15 36.5 C 70 14 06/15/21 11:10 36.3 C L 71 15 06/15/21 11:07 36.3 C L 70 14 BP BP BP BP BP Pulse Ox 06/15/21 15:42 127/64 96 06/15/21 14:25 128/70 130/70 127/77 06/15/21 12:20 107/62 95 06/15/21 11:55 101/59 L 96 06/15/21 11:46 98/61 98 06/15/21 11:30 94/62 97 06/15/21 11:21 90/61 96 06/15/21 11:15 93/59 L 95 06/15/21 11:10 83/51 L 93 06/15/21 11:07 90/54 L 99 - Physical Exam General Appearance: positive: No acute distress, Alert Eyes Bilateral: positive: Normal inspection ENT: positive: ENT inspection nml Neck: positive: Nml inspection Respiratory: positive: Chest non-tender, No respiratory distress, Breath sounds nml Cardiovascular: positive: Regular rate & rhythm, No murmur, No gallop Peripheral Pulses: positive: 2+ Abdomen: positive: Non-tender, Nml bowel sounds, No distention Back: positive: Nml inspection Skin: positive: Color nml, Warm, Dry Extremities: positive: No pedal edema, Other (Theodore wrap over incision on left knee) Neurologic/Psychiatric: positive: Oriented x3, Motor nml, Sensation nml Conclusion/Plan - Problem List (1) Knee joint replacement status Conclusion/Plan: Post-op day 0 following left total knee arthroplasty Qualifiers: Laterality: left Qualified Code(s): Z96.652 - Presence of left artificial knee joint (2) GERD (gastroesophageal reflux disease) Conclusion/Plan: Resume home Protonix (3) SVT (supraventricular tachycardia) Conclusion/Plan: Patient is mildly hypotensive, likely secondary to opioids and recent surgery. Hold metorpolol until tomorrow. She currently denies palpitations, chest pain, dizziness or shortness of breath (4) PVCs (premature ventricular contractions) Conclusion/Plan: Patient is mildly hypotensive, likely secondary to opioids and recent surgery. Hold metorpolol until tomorrow. She currently denies palpitations, chest pain, dizziness or shortness of breath - Lab Results Lab results reviewed: Yes
[2021-06-15] MEDS: PANTOPRAZOLE 40 MG TABLET PO SCH (16:32)
[2021-06-15] MEDS: ethyl alcohoL 62% SWAB AMPULE NAS SCH (21:09)
[2021-06-15] MEDS: ASPIRIN EC 81 MG TABLET PO SCH (21:09)
[2021-06-16] MEDS: ACETAMINOPHEN 500 MG TABLET PO SCH ×3 (00:29→12:15)
[2021-06-16] MEDS: NS W/20 MEQ KCL 1,000 ML IV SCH (00:29)
[2021-06-16] MEDS: SODIUM CHLORIDE FLUSH 0.9% 10 ML SYRINGE IVP SCH ×2 (00:30→08:01)
[2021-06-16] MEDS: oxyCODONE 5 MG TABLET PO PRN ×2 (02:40→08:50)
[2021-06-16] MEDS: PANTOPRAZOLE 40 MG TABLET PO SCH (06:02)
[2021-06-16] MEDS: ASPIRIN EC 81 MG TABLET PO SCH (07:59)
[2021-06-16] MEDS: CELECOXIB 100 MG CAPSULE PO SCH (07:59)
[2021-06-16] MEDS: ethyl alcohoL 62% SWAB AMPULE NAS SCH (07:59)
--- NOTE | 2021-06-16 08:53 | PROVIDER PROGRESS NOTE ---
Subjective - General Procedure Date: 06/15/21 Post Op Days: 1 Procedure Performed: Left TKA - Review of Systems Wound/Incisions: positive: Dressing dry and intact General: negative: Fever, Chills Pulmonary: negative: Shortness of breath Cardiovascular: negative: Chest pain Gastrointestinal: negative: Nausea, Vomiting Musculoskeletal: positive: Joint pain, Joint swelling All Other Systems: positive: Reviewed and negative - Other Other Information/Narrative: Patient is a 81-year-old female who is postop day 1 left Total knee arthroplasty performed by Dr Shamar Reed at [facility] on 06/15/2021. Patient has a history of hypertension arrhythmia and GERD. Patient denies signs or symptoms of infection, her pain is well controlled she has been weightbearing as tolerated in a front wheeled walker and has been able to get up to chair and get up to bathroom. Objective - Patient Data Reviewed Vital Signs: Yes Vital Signs: Vital Signs x48h Temp Pulse Resp BP Pulse Ox 06/16/21 07:55 80 113/58 L 06/16/21 07:35 37.3 C 75 18 111/57 L 94 06/16/21 04:12 37.1 C 74 14 107/57 L 90 L Weight: Weight 06/14/21 06/15/21 06/16/21 23:59 23:59 23:59 Weight (kg) 71.2 kg Intake & Output: Intake and Output Totals x24h 06/14/21 06/15/21 06/16/21 23:59 23:59 23:59 Intake Total 1638.000 350 Output Total 1400 1125 Balance 238.000 -775 - Imaging Results Radiology Imaging: positive: EMP read indepedently (I have independently visualized a left knee radiograph showing expected postsurgical changes following TKA with good anatomical alignment and no apparent hardware loosening) - Current Medications Current Medications: Current Medications Generic Name Dose Route Start Last Admin Trade Name Freq PRN Reason Stop Dose Admin Acetaminophen 1,000 mg 06/15/21 12:00 06/16/21 06:02 Acetaminophen 500 Mg Tablet PO 1,000 mg Q6HR JAIRO Administration Alcohol 1 amp 06/15/21 21:00 06/16/21 07:59 Ethyl Alcohol 62% Swab Ampule TRI 1 amp BID JAIRO Administration Aspirin 81 mg 06/15/21 21:00 06/16/21 07:59 Aspirin Ec 81 Mg Tablet PO 81 mg BID JAIRO Administration Celecoxib 200 mg 06/15/21 09:00 06/16/21 07:59 Celecoxib 100 Mg Capsule PO 200 mg BID JAIRO Administration Cholecalciferol 25 mcg 06/16/21 09:00 06/16/21 07:59 Cholecalciferol 25 Mcg Tablet PO 25 mcg DAILY JAIRO Administration Potassium Chloride/Sodium Chloride 1,000 mls @ 100 mls/hr 06/15/21 13:00 06/16/21 00:29 Normal Saline 0.9% W/20 Meq Kcl IV 100 mls/hr .Q10H JAIRO Administration Metoprolol Succinate 25 mg 06/16/21 09:00 06/16/21 07:59 Metoprolol Succinate 25 Mg Tablet PO 25 mg DAILY JAIRO Administration Oxycodone HCl 5 mg 06/15/21 07:31 06/16/21 02:40 Oxycodone 5 Mg Tablet PO 5 mg Q6HR PRN Administration PAIN Pantoprazole Sodium 40 mg 06/15/21 16:00 06/16/21 06:02 Pantoprazole 40 Mg Tablet PO 40 mg QDAC JAIRO Administration Sodium Chloride 10 ml 06/15/21 07:31 06/15/21 13:18 Sodium Chloride Flush 0.9% 10 Ml Syringe IVP 10 ml PRN PRN Administration NEEDED PER PROVIDER ORDERS Sodium Chloride 10 ml 06/15/21 09:00 06/16/21 08:01 Sodium Chloride Flush 0.9% 10 Ml Syringe IVP Not Given 0100,0900,1700 [facility] - Physical Exam Wound/Incisions: positive: Dressing dry and intact General Appearance: positive: No acute distress Respiratory: positive: No respiratory distress Skin: positive: Color nml, No rash, Warm, Dry Extremities: positive: Joint swelling Neurologic/Psychiatric: positive: Oriented x3 ABX Reporting Has patient been on IV antibiotics over the past 48 hours?: Yes Impression/Plan - Problem List Problem List: Patient is an 81-year-old female whose history includes hypertension, arrhythmia, GERD who is postop day 1 left TKA performed by Dr Shamar Reed at [facility] on 06/15/2021. Patient shows no signs or symptoms of infection. She has received PT/OT and is making good progress shortly after her total knee replacement. She is weightbearing as tolerated in front wheeled walker, her pain is well controlled and she has her home medications. Patient is to take 81 mg of aspirin twice a day for a total of 6 weeks for DVT prophylaxis. Patient is cleared for discharge from an orthopedic surgical standpoint. She is to follow-up in the clinic for first postop visit next week.
[2021-06-16] MEDS ORDERED: CHOLECALCIFEROL 25 MCG TABLET PO SCH (09:00)
[2021-06-16] MEDS ORDERED: METOPROLOL SUCCINATE 25 MG TABLET PO SCH (09:00)
[2021-06-16 11:58] VITALS: BP 111/63
[2021-06-16] MEDS ORDERED: KETOROLAC 15 MG/ML VIAL IVP STA (12:13)
[2021-06-16] MEDS: SODIUM CHLORIDE FLUSH 0.9% 10 ML SYRINGE IVP PRN (12:19)
== END 2021-06-16 13:20 | disposition home or self-care (01) ==
LOC: SDS 06:02 → MS2 12:02 → SDS 06-16 13:20
PROVIDERS: ATTEND Orthopaedic Surgery
DX: M17.12 Unilateral primary osteoarthritis, left knee (principal); I10 Essential (primary) hypertension; K21.9 Gastro-esophageal reflux disease without esophagitis; I73.9 Peripheral vascular disease, unspecified; I47.1 Supraventricular tachycardia; I49.3 Ventricular premature depolarization; I95.81 Postprocedural hypotension
CPT/HCPCS: 27447; 73560; 97116; 97161; 97165; A9270; C1713; J0131; J0690; J3370; J7040; J7120

== ENCOUNTER 2021-07-26 08:32 | Outpatient (CLI) | payer MEDICARE, OTHER ==
--- NOTE | 2021-07-26 10:24 | XRAY Report ---
PROCEDURE: Knee 3 View LT INDICATIONS: Left total knee arthroplasty TECHNIQUE: 3 views of the left knee(s) were acquired. COMPARISON: 06/15/2021 FINDINGS: Bones: Total knee arthroplasty in good position. Normal bone mineralization. No fracture. Soft tissues: Postprocedural air has resolved. Diffuse atherosclerotic vascular calcification noted. IMPRESSION: Left total knee arthroplasty in good position. No fracture. Reviewed by: Richard Jack MD on 07/26/2021 9:22 AM MELITA Approved by: Richard Jack MD on 07/26/2021 9:22 AM MELITA Station ID: [id number]
== END 2021-07-26 23:59 | disposition home or self-care (01) ==
LOC: DI.WOS 08:32
PROVIDERS: ATTEND Orthopaedic Surgery
DX: Z96.652 Presence of left artificial knee joint (principal)

== ENCOUNTER 2022-05-02 08:20 | Outpatient (CLI) | payer MEDICARE, OTHER ==
--- NOTE | 2022-05-03 11:56 | Mammography Report ---
BILATERAL DIGITAL SCREENING MAMMOGRAM 3D/2D: 05/02/2022 CLINICAL: Routine screening. Comparison is made to exams dated: 03/15/2020 mammogram, 05/08/2014 ultrasound, 05/08/2014 mammogram, and 03/31/2013 mammogram - [facility]. Both breasts are almost entirely fatty (category a/<25% glandular tissue). No significant masses, calcifications, or other findings are seen in either breast. There has been no significant interval change. IMPRESSION: NEGATIVE There is no mammographic evidence of malignancy. A 1 year screening mammogram is recommended. Based on the Tyrer Cuzick model (a risk assessment model) the patients lifetime risk is 0.2% and her 10 year risk is 0.0%. According to the ACR, ACS, and NCCN guidelines, an annual breast MRI exam suleman g with mammogram is recommended if the patients lifetime risk is 20% or greater. This exam was interpreted at Station ID: [id number]. NOTE: For mammograms, a report in lay terms will be sent to the patient. Approximately 15% of breast malignancies will not be visualized mammographically. In the management of a palpable breast mass, a negative mammogram must not discourage biopsy of a clinically suspicious lesion. Electronically Signed By: Roslyn rosario/tresa:05/02/2022 10:43:04 ACR BI-RADS Category 1: Negative 3341F PARENCHYMAL PATTERN: (F) - The breast(s) demonstrate(s) diffuse fatty replacement. BI-RADS CATEGORY: (1) - 1 RECOMMENDATION: (ANNUAL) - Recommend routine annual screening mammography. [id number] 1 year screening LATERALITY: (B)
== END 2022-05-02 08:21 | disposition home or self-care (01) ==
LOC: DI.N 08:20
DX: Z12.31 Encounter for screening mammogram for malignant neoplasm of breast (principal)

== ENCOUNTER 2022-05-05 07:56 | Outpatient (CLI) | payer MEDICARE, OTHER ==
[2022-05-05 12:48] LABS: BASOPHILS % (AUTO) 0.5 %; EOSINOPHILS # (AUTO) 0.1 10^3/uL (0.0-0.7); EOSINOPHILS % (AUTO) 1.8 %; HCT - HEMATOCRIT 42.2 % (37.0-47.0); HGB - HEMOGLOBIN 13.2 g/dL (12.0-16.0); LYMPHOCYTES # (AUTO) 2.9 10^3/uL (1.5-3.5); MEAN CORPUSCULAR HEMOGLOBIN 30.3 pg (27.0-31.0); MEAN CORPUSCULAR HGB CONC 31.3 g/dL (32.0-36.0); MEAN PLATELET VOLUME 11.2 fL (7.9-10.8); MONOCYTES # (AUTO) 0.6 10^3/uL (0.0-1.0); MONOCYTES % (AUTO) 10.5 %; NEUTROPHILS # (AUTO) 2.4 10^3/uL (1.5-6.6); NEUTROPHILS % (AUTO) 40.2 %; PLT - PLATELET COUNT 301 10^3/uL (130-450); RED BLOOD COUNT 4.35 10^6/uL (4.20-5.40); RED CELL DISTRIBUTION WIDTH 13.8 % (12.0-15.0); WHITE BLOOD COUNT 6.1 x10^3/uL (4.8-10.8)
[2022-05-05 13:29] LABS: THYROID STIMULATING HORMONE 1.82 uIU/mL (0.34-5.60)
[2022-05-05 13:50] LABS: ALBUMIN 4.1 g/dL (3.2-5.5); ALBUMIN/GLOBULIN RATIO 1.2 (1.0-2.2); ALKALINE PHOSPHATASE 40 IU/L (42-121); ALT ALANINE AMINOTRANSFERASE 22 IU/L (10-60); AST ASPARTATE AMINOTRANSFERASE 22 IU/L (10-42); BILIRUBIN,TOTAL 0.7 mg/dL (0.2-1.0); BUN - BLOOD UREA NITROGEN 36 mg/dL (6-20); CALCIUM 10.1 mg/dL (8.5-10.3); CARBON DIOXIDE - CO2 27 mmol/L (21-32); CHLORIDE 105 mmol/L (101-111); CHOL/HDL RATIO 6.4 (<4.4); CHOLESTEROL 237 mg/dL; CREATININE 0.9 mg/dL (0.4-1.0); GFR - MDRD 60 (>89); GLUCOSE 92 mg/dL (70-100); HDL CHOLESTEROL 37 mg/dL; LDL CHOLESTEROL,CALCULATED 169 mg/dL; LDL/HDL RATIO 4.6 (<4.4); SODIUM 139 mmol/L (135-145); TOTAL PROTEIN 7.5 g/dL (6.7-8.2); TRIGLYCERIDES 157 mg/dL; VLDL CHOLESTEROL 31 mg/dL
== END 2022-05-05 07:57 | disposition home or self-care (01) ==
LOC: LAB.N 07:56
PROVIDERS: ATTEND Nurse Practitioner Family
DX: Z00.00 Encounter for general adult medical examination without abnormal findings (principal); I47.1 Supraventricular tachycardia; Z79.899 Other long term (current) drug therapy
CPT/HCPCS: 36415; 80053; 80061; 83721; 84443; 85025

== ENCOUNTER 2022-05-31 09:28 | Outpatient (CLI) | payer MEDICARE, OTHER ==
--- NOTE | 2022-05-31 11:19 | DEXA Report ---
PROCEDURE: Dexa Spine and/or Hip INDICATIONS: POST MENOPAUSAL TECHNIQUE: Dual energy x-ray absorptiometry (DXA) was performed on a [employer] System. Regions measur ed are the AP Spine, femoral neck, and if needed forearm. COMPARISON: DEXA 03/16/2020 FINDINGS: Lumbar Spine: Bone Mineral Density 1.218 g/cm/cm,T score 0.2, significantly increased by 6.7% when compared to t he DEXA from 03/16/2020. Left Femoral Neck: Bone Mineral Density 0.772 g/cm/cm, T score -1.9, osteopenia. Left Hip: Bone Mineral Density 0.765 g/cm/cm,T score -1.9, osteopenia, significantly increased by 7.0% when co mpared to the DEXA from 03/16/2020. (T score greater or equal to -1.0: NORMAL) (T score from -1.1 to -2.4: OSTEOPENIA) (T score less than or equal to -2.5 to: OSTEOPOROSIS) Impression: Bone mineral density within the osteopenia range at the left hip and left femoral neck. Bone mineral density has significantly increased at the lumbar spine and left hip when compared to the exam from 05/17/2019. Patients with diagnosis of osteoporosis or osteopenia should have regular bone mineral density assess ment. For those eligible for Medicare, routine testing is allowed once every 2 years. Testing frequ ency can be increased for patients who have rapidly progressing disease or for those who are receivin g medical therapy to restore bone mass. Reviewed by: Santo Lala MD on 05/31/2022 11:17 AM PST Approved by: Santo Lala MD on 05/31/2022 11:17 AM PST Station ID: [id number]
== END 2022-05-31 09:29 | disposition home or self-care (01) ==
LOC: DI 09:28
PROVIDERS: ATTEND Nurse Practitioner Family
DX: Z78.0 Asymptomatic menopausal state (principal); M85.89 Other specified disorders of bone density and structure, multiple sites

== ENCOUNTER 2022-06-30 09:42 | Day surgery (SDC) | payer MEDICARE, OTHER ==
[2022-06-30] MEDS ORDERED: LACTATED RINGERS 1,000 ML IV ONE (09:46)
[2022-06-30] MEDS ORDERED: PROPOFOL 200 MG/20 ML VIAL IVP ONE (10:19)
[2022-06-30] MEDS ORDERED: LIDOCAINE-MPF 2% 5 ML VIAL ONE (10:25)
--- NOTE | 2022-06-30 10:55 | ANESTHESIA ---
Pre-Anesthesia VS, & Labs - Diagnosis heartburn - Procedure EGD Height: 5 ft 2 in Weight (kg): 68.9 kg Body Mass Index: 27.8 BMI Classification: Overweight - NPO >8 hours - Is Patient ?: No Home Medications and Allergies Home Medications: Ambulatory Orders estradioL vaginal [Estrace vaginal] 0.1 mg [id number] DAILYWM 06/27/22 Acetaminophen [Tylenol Arthritis] 650 mg PO PRN PRN 01/21/18 Aspirin 81 mg PO DAILY 01/21/18 Cholecalciferol (Vitamin D3) [Vitamin D3] 1,000 unit PO DAILY 01/21/18 Naproxen Sodium [Aleve] 220 mg PO DAILY 01/21/18 [place]-3/Dha/Epa/Fish Oil [Fish Oil 1,000 mg Softgel] 1 each PO DAILY 01/21/18 Sumatriptan Succinate [Imitrex] 50 mg PO PRN PRN 01/22/18 Tolterodine Tartrate [Detrol LA] 4 mg PO HS 01/22/18 Glucos Sul 2Kcl/MSM/Chond/C/Mn [Glucosamine Chondroitin Cap] 1 tab PO DAILY 04/28/21 Metoprolol Succinate [Toprol Xl] 25 mg PO DAILY 04/28/21 Omeprazole Magnesium 20 mg PO DAILY 04/28/21 estradioL vaginal [Estrace vaginal] 0.1 mg [id number] DAILYWM 06/27/22 Allergies/Adverse Reactions: Allergies Allergy/AdvReac Type Severity Reaction Status Date / Time hydrocodone Allergy Emesis Verified 04/28/21 14:08 Anes History & Medical History - Anesthetic History Anesthesia Complications: reports: Post-Operative Nausea/Vomiting - Medical History Cardiovascular: reports: Hypertension, High cholesterol, Peripheral Vascular Disease, Arrhythmia Pulmonary: reports: Pneumonia Gastrointestinal: reports: GERD Urinary: reports: None, Frequency Neuro: reports: Migraines Musculoskeletal: reports: Osteoarthritis, Osteopenia, Scoliosis, Chronic back pain Endocrine/Autoimmune: reports: None Skin: reports: Other - Surgical History General: reports: Appendectomy, Colonoscopy Eyes Ears Nose Throat (EENT): reports: Cataracts, Tonsil/Adenoidectomy Gynecologic: reports: Hysterectomy Orthopedic: reports: Knee replacement, Carpal Tunnel surgery Exam General: Alert, Oriented x3, Cooperative Dental: WNL Mouth Opening: Greater than 4 Fingerbreadths Neck Mobility: Normal Mallampati classification: II Thyromental Distance: greater than 6 cm Respiratory: Lungs clear Cardiovascular: Regular rate Plan Anesthesia Type: Total IV Consent for Procedure(s) Verified and Reviewed: Yes Code Status: Attempt Resuscitation ASA classification: 2-Mild systemic disease Is this case an emergency?: No
[2022-06-30] MEDS ORDERED: LACTATED RINGERS 600 ML IV ONE (11:13)
[2022-06-30 11:53] VITALS: BP 97/67
--- NOTE | 2022-06-30 11:56 | ANESTHESIA POST OP EVALUATION ---
Anesthesia Post Eval - Post Anesthesia Eval Vitals: Last Vital Signs Temp 36.3 C L 06/30/22 11:35 Pulse 63 06/30/22 11:35 Resp 16 06/30/22 11:35 BP 97/67 06/30/22 11:35 Pulse Ox 97 06/30/22 11:35 O2 Flow Rate CV Function Including HR & BP: Stable Pain Control: Satisfactory Nausea & Vomiting: Negative Mental Status: Baseline Respiratory Status: Airway Patent Hydration Status: Satisfactory Anesthesia Complications: None
== END 2022-06-30 09:43 | disposition home or self-care (01) ==
LOC: SDS 09:42
PROVIDERS: ATTEND Surgery
PROC: 0DB78ZX Excision of Stomach, Pylorus, Via Natural or Artificial Opening Endoscopic, Diagnostic (ICD-10-PCS; 2022-06-30)
PROC: 0DB38ZX Excision of Lower Esophagus, Via Natural or Artificial Opening Endoscopic, Diagnostic (ICD-10-PCS; principal; 2022-06-30 11:00)
DX: K21.9 Gastro-esophageal reflux disease without esophagitis (principal); K29.50 Unspecified chronic gastritis without bleeding; K44.9 Diaphragmatic hernia without obstruction or gangrene; Z79.82 Long term (current) use of aspirin; Z79.1 Long term (current) use of non-steroidal anti-inflammatories (NSAID)
CPT/HCPCS: 43239; J7120

== ENCOUNTER 2022-07-04 12:37 | Outpatient (CLI) | payer MEDICARE, OTHER ==
--- NOTE | 2022-07-04 15:46 | XRAY Report ---
PROCEDURE: Knee 4 View LT INDICATIONS: LEFT TOTAL KNEE ARTHROPLASTY TECHNIQUE: 4 views of the left knee(s) were acquired. COMPARISON: Plain films dated 07/26/2021 FINDINGS: Bones: Left knee arthroplasty has been performed, as before. Hardware is intact. No fractures or dis locations. No suspicious bony lesions. Soft tissues: No joint effusion. No suspicious soft tissue calcifications. IMPRESSION: Expected appearance of left knee arthroplasty. No acute fracture. No osseous lesion. If symptoms and/or clinical suspicion for pathology continue, further assessment with repeat plain films , or advanced imaging (e.g., CT, MRI, or bone scan) is recommended for further assessment. Reviewed by: Kevin Mckeon MD on 07/04/2022 3:45 PM PDT Approved by: Kevin Mckeon MD on 07/04/2022 3:45 PM PDT Station ID: [id number]
== END 2022-07-04 12:47 | disposition home or self-care (01) ==
LOC: DI.WOS 12:37
PROVIDERS: ATTEND Orthopaedic Surgery
DX: Z96.652 Presence of left artificial knee joint (principal)

== ENCOUNTER 2023-05-09 10:05 | Outpatient (CLI) | payer MEDICARE, OTHER ==
--- NOTE | 2023-05-10 09:18 | Mammography Report ---
BILATERAL DIGITAL SCREENING MAMMOGRAM 3D/2D: 05/09/2023 CLINICAL: Routine screening. Family history of breast cancer. Comparison is made to exams dated: 05/02/2022 mammogram, 03/15/2020 mammogram, and 05/08/2014 mammogra m - [facility]. There are scattered areas of fibroglandular density in both breasts (category b / 25%-50% glandular t issue). No significant masses, calcifications, or other findings are seen in either breast. There has been no significant interval change. IMPRESSION: NEGATIVE There is no mammographic evidence of malignancy. A 1 year screening mammogram is recommended. Based on the Tyrer Cuzick model (a risk assessment model) the patient's lifetime risk is 0.5% and her 10 year risk is 0.0%. According to the ACR, ACS, and NCCN guidelines, an annual breast MRI exam suleman g with mammogram is recommended if the patients lifetime risk is 20% or greater. This exam was interpreted at Station ID: [id number]. NOTE: For mammograms, a report in lay terms will be sent to the patient. Approximately 15% of breast malignancies will not be visualized mammographically. In the management of a palpable breast mass, a negative mammogram must not discourage biopsy of a clinically suspicious lesion. Electronically Signed By: Manny goyal/tresa:05/09/2023 16:55:29 ACR BI-RADS Category 1: Negative 3341F PARENCHYMAL PATTERN: (A) - The breast(s) demonstrate(s) scattered fibroglandular densities. BI-RADS CATEGORY: (1) - 1 Mammogram [id number] 1 year screening LATERALITY: (B)
== END 2023-05-09 10:06 | disposition home or self-care (01) ==
LOC: DI.N 10:05
DX: Z12.31 Encounter for screening mammogram for malignant neoplasm of breast (principal); Z80.3 Family history of malignant neoplasm of breast; R92.323 Mammographic fibroglandular density, bilateral breasts

== ENCOUNTER 2023-07-09 08:00 | Outpatient (CLI) | payer MEDICARE, OTHER ==
--- NOTE | 2023-07-09 14:48 | XRAY Report ---
PROCEDURE: Knee 4 View LT INDICATIONS: BILAT KNEE ARTHROPLASTY FOLLOWUP TECHNIQUE: 4 views of the knee(s) were acquired. COMPARISON: 07/04/2022. FINDINGS: Bones: Expected appearance of total left knee arthroplasty. No evidence of hardware failure or loose geraldine. No fractures or dislocations. No suspicious bony lesions. Soft tissues: No knee joint effusion. No suspicious soft tissue calcifications or masses. IMPRESSION: No acute bony abnormality. Expected appearance of total left knee arthroplasty. Reviewed by: Juan Villasenor MD on 07/09/2023 2:46 PM PDT Approved by: Juan Villasenor MD on 07/09/2023 2:46 PM PDT Station ID: [id number]
== END 2023-07-09 23:59 | disposition home or self-care (01) ==
LOC: DI.WOS 08:00
PROVIDERS: ATTEND Orthopaedic Surgery
DX: Z47.1 Aftercare following joint replacement surgery (principal); Z96.652 Presence of left artificial knee joint

== ENCOUNTER 2023-11-13 07:27 | Outpatient (CLI) | payer MEDICARE, OTHER ==
[2023-11-13 12:38] LABS: BASOPHILS % (AUTO) 0.4 %; EOSINOPHILS # (AUTO) 0.1 10^3/uL (0.0-0.7); EOSINOPHILS % (AUTO) 1.6 %; HCT - HEMATOCRIT 44.4 % (37.0-47.0); HGB - HEMOGLOBIN 14.3 g/dL (12.0-16.0); LYMPHOCYTES # (AUTO) 2.4 10^3/uL (1.5-3.5); LYMPHOCYTES % (AUTO) 43.4 %; MEAN CORPUSCULAR HEMOGLOBIN 31.4 pg (27.0-31.0); MEAN CORPUSCULAR HGB CONC 32.2 g/dL (32.0-36.0); MEAN CORPUSCULAR VOLUME 97.4 fL (81.0-99.0); MEAN PLATELET VOLUME 10.9 fL (7.9-10.8); MONOCYTES # (AUTO) 0.6 10^3/uL (0.0-1.0); NEUTROPHILS # (AUTO) 2.4 10^3/uL (1.5-6.6); NEUTROPHILS % (AUTO) 43.6 %; PLT - PLATELET COUNT 284 10^3/uL (130-450); RED BLOOD COUNT 4.56 10^6/uL (4.20-5.40); RED CELL DISTRIBUTION WIDTH 13.5 % (12.0-15.0); WHITE BLOOD COUNT 5.6 x10^3/uL (4.8-10.8)
[2023-11-13 12:53] LABS: ALBUMIN 4.4 g/dL (3.2-5.5); ALBUMIN/GLOBULIN RATIO 1.3 (1.0-2.2); ALKALINE PHOSPHATASE 54 IU/L (42-121); ALT ALANINE AMINOTRANSFERASE 12 IU/L (10-60); AST ASPARTATE AMINOTRANSFERASE 17 IU/L (10-42); BILIRUBIN,TOTAL 0.7 mg/dL (0.2-1.0); BUN - BLOOD UREA NITROGEN 22 mg/dL (6-20); CALCIUM 10.6 mg/dL (8.5-10.3); CARBON DIOXIDE - CO2 30 mmol/L (21-32); CHLORIDE 101 mmol/L (101-111); CHOL/HDL RATIO 6.2 (<4.4); CHOLESTEROL 203 mg/dL; GFR - MDRD 53 (>89); GLUCOSE 95 mg/dL (74-104); HDL CHOLESTEROL 33 mg/dL; LDL CHOLESTEROL,CALCULATED 127 mg/dL; LDL/HDL RATIO 3.8 (<4.4); POTASSIUM 4.6 mmol/L (3.5-4.5); SODIUM 135 mmol/L (135-145); TOTAL PROTEIN 7.7 g/dL (6.4-8.9); TRIGLYCERIDES 215 mg/dL; VLDL CHOLESTEROL 43 mg/dL
== END 2023-11-13 07:28 | disposition home or self-care (01) ==
LOC: LAB.N 07:27
PROVIDERS: ATTEND Nurse Practitioner Family
DX: I10 Essential (primary) hypertension (principal); M85.80 Other specified disorders of bone density and structure, unspecified site; E78.5 Hyperlipidemia, unspecified
CPT/HCPCS: 36415; 80053; 80061; 83721; 85025